=== PATIENT | female | born 1985 | race Caucasian/White ===

== ENCOUNTER 2017-01-18 08:54 | Emergency (ER) ==
[2017-01-18] MEDS ORDERED: ZOFRAN ODT PO ONE (09:49)
[2017-01-18] MEDS ORDERED: SOLU-MEDROL IM ONE (09:49)
--- NOTE | 2017-01-18 10:01 | PROVIDER DOCUMENTATION ---
HPI-EENT General - General Chief Complaint: Flu Symptoms Stated Complaint: FLU SX Time Seen by Provider: 01/18/17 09:26 Source: patient Allergies/Adverse Reactions: Patient Allergies Allergy/AdvReac Type Severity Reaction Status Date / Time No Known Allergies Allergy Verified 01/18/17 09:11 Home Medications: Home Medication List Medication Instructions Recorded Confirmed Last Taken Type Nitrofurantoin Monohyd/M-Cryst 100 mg PO BID #20 capsule 01/18/17 Unknown Rx [Macrobid 100 mg Capsule] Ondansetron Odt [Zofran 4 mg Odt] 4 mg PO Q8H PRN PRN #10 tablet 01/18/17 Unknown Rx - History of Present Illness-EENT General Nature of Presenting Problem: Pt is 31 y/o F presents to the ED with flu like symptoms. Pt states symptoms started 5 days ago. Pt states nasal congestion, cough, nasal drainage, body aches, and F/ chills. Pt denies N/V/D. EENT Location: reports: nose, throat Quality of Pain: reports: aching Severity: reports: mild Onset/Duration: reports: 5 days ago Timing: reports: still present, intermittent Prearrival Treatment: Initiated no prearrival treatment Associated Symptoms: reports: cough, fever, nasal congestion/drainage. denies: change in hearing, drooling, ear drainage, facial pain/swelling, malaise, poor fluid intake, poor solids intake, sinus infection, sore throat, tooth pain, voice change Locality of Occurance: Home Similar Symptoms Previously?: Yes Recently seen or treated by another doctor?: No - Nose Nose Problem Symptoms: other (congestion) - Throat/Dental Throat/Dental Problem Symptoms: reports: sore throat. denies: toothache, jaw pain, swelling of jaw/face, trouble breathing, throat swelling, unable to swallow Throat/Dental Problem Context: denies: recent dental extractions Recently seen a dentist or have an appointment?: No Review of Systems - Adult - REVIEW OF SYSTEMS - ADULT Constitutional: reports: chills, fever Eyes: denies: blurred vision, double vision Ears, Nose, Mouth & Throat: reports: sinus problem (congestion and drainage), throat pain. denies: ear pain, nose pain Cardiovascular: denies: chest pain, heart murmur, irregular heart rate Respiratory: reports: cough. denies: shortness of breath, wheezing Gastrointestinal: denies: abdominal pain, diarrhea, nausea, vomiting Genitourinary: denies: dysuria, hematuria Musculoskeletal: reports: muscle aches. denies: bone pain, joint pain, neck pain Integumentary: denies: hives, itching Neurological: denies: dizziness/vertigo, headache/migraines, syncope Psychiatric: denies: anxiety, depression, suicidal thoughts Endocrine: reports: no symptoms reported Hematologic/Lymphatic: reports: no symptoms reported Allergic/Immunologic: reports: no symptoms reported All Other Systems: Reviewed and Negative Past History - Adult - PAST MEDICAL HISTORY-ADULT Review of Records: reports: Nursing Assessment Review, Medications Reviewed, Social history reviewed & non-contributory. Major Childhood Illnesses: reports: denies history Cardiovascular: reports: denies history Respiratory: reports: denies history Gastrointestinal: reports: Crohn's Obstetrical/Gynecological: reports: denies history Genitourinary: reports: denies history Musculoskeletal: reports: denies history Neurological: reports: denies history Endocrine/Immune: reports: denies history Other Conditions: reports: denies history - PRIOR SURGERIES/PROCEDURES Surgical/Procedure History: reports: BTL - IMMUNIZATION STATUS Childhood Immunizations: See Nurse Assessment Flu Vaccine: See Nurse Assessment - FAMILY HISTORY Family History: reviewed, not pertinent - SOCIAL HISTORY Smoking: cigarettes, less than 1 pack/day Provider spent 3-5 mins advising pt. on dangers of tobacco.: Discussed manners to quit use, and f/u contacts for add'l counseling. Substance Use: denies Living Situation: family Physical Exam- EENT - Physical Exam EENT General Appearance: alert, no apparent distress. negative: appears well (ill in appearance) Eye Exam: bilateral eye: normal inspection, PERRL, EOMI Ear Exam: bilateral ear: auricle normal, canal normal, TM normal Nasal Exam: normal inspection Throat Exam: other (pharynx redness). negative: dental tenderness Neck: non-tender, full range of motion, supple, normal inspection Respiratory: chest non-tender, lungs clear, normal breath sounds, no pleuratic chest pain, no respiratory distress, no accessory muscle use Cardiovascular: normal peripheral pulses, regular rate, rhythm, no edema, no gallop, no JVD, no murmur Abdominal Exam: normal bowel sounds, non tender, soft, no organomegaly, no pulsatile mass Lymphatic: no adenopathy Back Exam: normal inspection, no CVA tenderness, no vertebral tenderness Extremity: normal range of motion, non-tender, normal gait, normal inspection, no pedal edema, no calf tenderness, normal capillary refill Integumentary: normal color, normal turgor, warm/dry Neurologic: grossly normal Psych/Mental Status: normal mood/affect, oriented x 3 Progress - PLAN OF CARE/RESULTS Progress/Plan/Lab Results: Laboratory Tests 01/18/17 09:12 Influenza A (Rapid) NEGATIVE Influenza B (Rapid) NEGATIVE Orders Category Date Time Status ED: Urine Bedside ORDERED Care 01/18/17 09:50 Active CHEST-2 VIEWS [RAD] Stat Exams 01/18/17 09:[address] Stat Lab 01/18/17 09:[address] W/POSS RFLX CULT [URINALYSIS] Stat Lab 01/18/17 09:27 Ordered Methylprednisolone Sod Succ [Solu-Medrol] Med 01/18/17 09:49 Discontinued 125 mg IM NOW ONE Ondansetron Odt [Zofran Odt] Med 01/18/17 09:49 Discontinued 8 mg PO NOW ONE Vital Signs - 24 hr 01/18/17 09:08 Temperature 98.5 F Pulse Rate 96 H Respiratory 18 Rate Blood Pressure 123/69 O2 Sat by Pulse 99 Oximetry Laboratory Tests 01/18/17 01/18/17 09:12 09:42 Urine Source CLEAN CATCH Urine Color YELLOW Urine Clarity CLEAR Urine pH 6.5 Ur Specific [place] 1.020 Urine Protein TRACE A Urine Ketones TRACE Urine Blood NEGATIVE Urine Nitrite NEGATIVE Urine Bilirubin NEGATIVE Urine Urobilinogen NORMAL Urine Microscopic RBC Not Reportable Urine WBC 2+ A Urine Microscopic WBC 10-20 A Ur Epithelial Cells >10 A Urine Bacteria 2+ Urine Glucose NEGATIVE Influenza A (Rapid) NEGATIVE Influenza B (Rapid) NEGATIVE - XRAY 1 XRAY: Bilateral XRAY Study: Chest Impression: Normal XRAY Interpretation: NAD Departure - Departure Time of Disposition Order: 10:35 DIAGNOSIS: URI (upper respiratory infection) Qualifiers: URI type: unspecified URI Qualified Code(s): J06.9 - Acute upper respiratory infection, unspecified UTI (urinary tract infection) Qualifiers: Urinary tract infection type: site unspecified Hematuria presence: without hematuria Qualified Code(s): N39.0 - Urinary tract infection, site not specified Disposition: HOME 01 Certified Medical Emergency: Emergent Condition: Stable Additional Instructions: Follow up with regular MD in 2-3 days. Return to ER if your symptoms worsen. Prescriptions: Nitrofurantoin Monohyd/M-Cryst [Macrobid 100 mg Capsule] 100 mg PO BID #20 capsule Ondansetron Odt [Zofran 4 mg Odt] 4 mg PO Q8H PRN PRN #10 tablet PRN Reason: Nausea And Vomiting Referrals: None,PCP [Primary Care Provider] - Attestation - Scribe Verification/Attestation Scribe:: Marta Thibodeaux Acting as Scribe for:: Olivia Rouse Scribe documention review:: This chart was documented by a scribe and accurately reflects the service the provider performed and the decisions made by the provider.
[2017-01-18 10:10] LABS: URINE SOURCE CLEAN CATCH
[2017-01-18 10:29] LABS: BILIRUBIN URINE NEGATIVE (NEGATIVE); BLOOD URINE NEGATIVE (NEGATIVE); CLARITY CLEAR (CLEAR); COLOR YELLOW; GLUCOSE URINE NEGATIVE (NEGATIVE); LEUKOCYTES URINE 2+ (NEGATIVE); NITRITE URINE NEGATIVE (NEGATIVE); PH URINE 6.5; PROTEIN URINE TRACE mg/dL (NEGATIVE); UROBILINOGEN URINE NORMAL
[2017-01-18 10:30] LABS: URINE CULTURE PL NEEDED? YES; URINE EPITHELIAL CELLS >10 /HPF (<10)
[2017-01-18] MEDS ORDERED: ROCEPHIN IM ONE (10:33)
[2017-01-18] MEDS ORDERED: XYLOCAINE-MPF 1% INJ ONE (10:33)
--- NOTE | 2017-01-18 10:38 | Diag Imaging Result Document ---
PROCEDURE NAME: CHEST-2 VIEWS - 01/18/2017 TWO VIEWS OF THE CHEST: FINDINGS: There is no evidence of acute cardiac or pulmonary disease. Compared to 02/21/2016, there has been no significant change in the appearance of the chest. IMPRESSION: No evidence of acute disease.
[2017-01-18 11:08] VITALS: BP 129/77
== END 2017-01-18 11:20 | disposition home or self-care (01) ==
LOC: P.ED 08:54
DX: J06.9 Acute upper respiratory infection, unspecified (principal); N39.0 Urinary tract infection, site not specified; R09.81 Nasal congestion; R05 Cough; R50.9 Fever, unspecified; J02.9 Acute pharyngitis, unspecified; M79.1 Myalgia; F17.210 Nicotine dependence, cigarettes, uncomplicated; Z71.6 Tobacco abuse counseling
CPT/HCPCS: 71020; 81001; 81025; 87088; 87804; 96372; J0696; J2930